=== PATIENT | male | born 1960 | race Caucasian/White ===

== ENCOUNTER 2017-01-31 11:17 | Inpatient (IN) | payer OTHER ==
[~2017-01-31] VITALS: Ht 182.9 cm; Wt 59.3 kg
[2017-01-31 13:29] VITALS: BP 164/92
[2017-01-31 14:33] VITALS: BP 146/93
[2017-01-31] MEDS ORDERED: DIAZEPAM 5 MG/ML, 2ML IV PRN (16:00)
[2017-01-31] MEDS ORDERED: KETOROLAC 30 MG/1 ML IVPush PRN (16:00)
[2017-01-31] MEDS ORDERED: METHOCARBAMOL 750 MG in DEXTROSE 5% 100 ML IV SCH (16:00)
[2017-01-31] MEDS ORDERED: ZOLP-413 PO (16:04)
[2017-01-31] MEDS ORDERED: FLUT1BLS IH (16:04)
[2017-01-31] MEDS ORDERED: IBUP800T PO (16:04)
[2017-01-31] MEDS ORDERED: CYCL-259 PO (16:04)
[2017-01-31] MEDS ORDERED: ACET-709 PO/NG (16:04)
[2017-01-31] MEDS ORDERED: ALBU5SOL5 INH (16:04)
[2017-01-31] MEDS ORDERED: BISACODYL 10 MG SUPP PR PRN (16:30)
[2017-01-31] MEDS ORDERED: ENALAPRILAT 1.25 MG/ML, 2ML IVPush PRN (16:30)
[2017-01-31] MEDS ORDERED: PROMETHAZINE 25 MG/ML, 1ML IM PRN (16:30)
[2017-01-31] MEDS ORDERED: ONDANSETRON 2MG/ML, 2ML IVPush PRN (16:30)
[2017-01-31] MEDS ORDERED: ZOLPIDEM 5MG TABLET PO PRN (16:30)
[2017-01-31] MEDS ORDERED: hydrALAzine 20 MG/ML, 1ML IVPush PRN (16:30)
[2017-01-31] MEDS ORDERED: ACETAMINOPHEN 325 MG TABLET PO PRN (16:30)
[2017-01-31] MEDS ORDERED: METOCLOPRAMIDE 5 MG/ML, 2ML IVPush PRN (16:30)
[2017-01-31] MEDS ORDERED: PLEASE ENTER ALLERGIES MC SCH ×2 (16:30)
[2017-01-31] MEDS ORDERED: DOCUSATE 100 MG CAPSULE PO PRN (16:30)
[2017-01-31] MEDS: DEXAMETHASONE 4 MG/ML, 1ML IVPush SCH ×2 (17:04→21:12)
[2017-01-31] MEDS: ENOXAPARIN 40 MG/0.4 ML SQ SCH (17:18)
[2017-01-31] MEDS ORDERED: DILTIAZEM 5 MG/ML, 5ML ONE (18:52)
[2017-01-31] MEDS ORDERED: DILTIAZEM 5 MG/ML, 5ML IVPush ONE (19:00)
[2017-01-31 19:18] VITALS: BP 156/96
[2017-01-31 19:45] VITALS: BP 134/97
[2017-01-31] MEDS ORDERED: DILTIAZEM 120 MG CAP.ER.12H PO SCH (21:00)
[2017-01-31] MEDS: METHOCARBAMOL 750 MG in DEXTROSE 5% 100 ML IV SCH (21:12)
[2017-01-31] MEDS: DRONABINOL 5 MG CAPSULE PO SCH (21:12)
[2017-01-31] MEDS: SODIUM CHLORIDE FLUSH 10ML SYR IVF SCH (21:12)
[2017-02-01 02:02] VITALS: BP 126/82
[2017-02-01] MEDS: DEXAMETHASONE 4 MG/ML, 1ML IVPush SCH ×4 (04:12→21:01)
[2017-02-01] MEDS: OXYcodone IR 5MG TABLET PO PRN ×3 (04:12→21:01)
[2017-02-01 05:31] LABS: HEMATOCRIT 44.6 % (39.2-51.8); WHITE BLOOD COUNT 13.1 x10^3/uL (3.4-10)
[2017-02-01 05:44] LABS: ASPARTATE AMINO TRANSFERASE 49 U/L (15-37); BLOOD UREA NITROGEN 23 mg/dL (7-18)
[2017-02-01] MEDS: METHOCARBAMOL 750 MG in DEXTROSE 5% 100 ML IV SCH ×4 (06:12→21:01)
[2017-02-01] MEDS ORDERED: SODIUM CHLORIDE 0.9% 1,000 ML IV SCH (08:30)
[2017-02-01] MEDS ORDERED: FUROSEMIDE 40 MG/4 ML IV ONE (08:30)
[2017-02-01] MEDS: DRONABINOL 5 MG CAPSULE PO SCH ×2 (09:01→21:02)
[2017-02-01] MEDS: SODIUM CHLORIDE FLUSH 10ML SYR IVF SCH ×2 (09:02→21:01)
[2017-02-01] MEDS: DILTIAZEM 120 MG CAP.ER.12H PO SCH ×2 (09:02→21:02)
[2017-02-01] MEDS: HYDROmorphone 2 MG/ML, 1ML IVPush PRN ×4 (09:03→22:55)
[2017-02-01] MEDS: DIGOXIN 0.125 MG TABLET PO SCH (09:03)
[2017-02-01 09:04] VITALS: BP 148/95
[2017-02-01] MEDS: SENNA/DOCUSATE TABLET PO SCH (09:04)
[2017-02-01] MEDS: ALBUTEROL/IPRATROPIUM 2.5MG/0.5MG, 3 ML NPPB SCH ×3 (11:25→19:36)
[2017-02-01] MEDS ORDERED: ALBUTEROL/IPRATROPIUM 2.5MG/0.5MG, 3 ML ONE (11:25)
[2017-02-01 14:15] VITALS: BP 149/95
[2017-02-01] MEDS: ENOXAPARIN 40 MG/0.4 ML SQ SCH (16:12)
[2017-02-01 19:17] VITALS: BP 156/84
[2017-02-01 19:59] VITALS: BP 157/85
[2017-02-02 01:49] VITALS: BP 159/88
[2017-02-02] MEDS: OXYcodone IR 5MG TABLET PO PRN (01:52)
[2017-02-02] MEDS ORDERED: DILTIAZEM 5 MG/ML, 5ML IVPush ONE (03:30)
[2017-02-02] MEDS ORDERED: DILTIAZEM 125 MG in SODIUM CHLORIDE 0.9% 100 ML IV PRN (03:30)
[2017-02-02] MEDS: DEXAMETHASONE 4 MG/ML, 1ML IVPush SCH ×4 (03:39→20:59)
[2017-02-02] MEDS: HYDROmorphone 2 MG/ML, 1ML IVPush PRN ×2 (04:56→13:57)
[2017-02-02 05:42] LABS: ASPARTATE AMINO TRANSFERASE 31 U/L (15-37); BLOOD UREA NITROGEN 24 mg/dL (7-18)
[2017-02-02] MEDS: METHOCARBAMOL 750 MG in DEXTROSE 5% 100 ML IV SCH ×4 (06:12→21:00)
[2017-02-02] MEDS: ALBUTEROL/IPRATROPIUM 2.5MG/0.5MG, 3 ML NPPB SCH ×4 (07:20→19:23)
[2017-02-02 08:48] VITALS: BP 139/93
[2017-02-02] MEDS ORDERED: HEPARIN 5,000 UNITS/ML, 1ML IV ONE (09:00)
[2017-02-02] MEDS ORDERED: ZOLEDRONIC ACID 4MG/100ML 100 ML IV ONE (09:00)
[2017-02-02] MEDS: SODIUM CHLORIDE FLUSH 10ML SYR IVF SCH ×2 (10:13→21:00)
[2017-02-02] MEDS: DIGOXIN 0.125 MG TABLET PO SCH (10:13)
[2017-02-02] MEDS: SENNA/DOCUSATE TABLET PO SCH (10:13)
[2017-02-02] MEDS: DRONABINOL 5 MG CAPSULE PO SCH ×2 (10:13→20:59)
[2017-02-02] MEDS ORDERED: AMIODARONE 150 MG in DEXTROSE 5% 100 ML IV ONE (10:30)
[2017-02-02] MEDS ORDERED: AMIODARONE 900 MG in DEXTROSE 5% 482 ML IV PRN (10:30)
[2017-02-02] MEDS ORDERED: FILTER 0.22 MICRON IV SCH (11:00)
[2017-02-02] MEDS: HEPARIN 25,000 UNITS/500ML PMX 500 ML IV PRN (11:05)
[2017-02-02 15:00] VITALS: BP 145/76
[2017-02-02] MEDS: HEPARIN 5,000 UNITS/ML, 1ML IV PRN ×2 (17:32→23:56)
[2017-02-02 19:55] VITALS: BP 152/87
[2017-02-02] MEDS: maalox/diphenh/lido/sucralfate 5 ML PO PRN (21:00)
[2017-02-03 02:20] VITALS: BP 155/92
[2017-02-03] MEDS: DEXAMETHASONE 4 MG/ML, 1ML IVPush SCH ×4 (04:23→23:01)
[2017-02-03] MEDS: maalox/diphenh/lido/sucralfate 5 ML PO PRN (04:27)
[2017-02-03 05:29] LABS: HEMATOCRIT 46.9 % (39.2-51.8); HEMOGLOBIN 15.6 g/dL (13.7-18.0); WHITE BLOOD COUNT 15.2 x10^3/uL (3.4-10)
[2017-02-03 05:42] LABS: BLOOD UREA NITROGEN 22 mg/dL (7-18)
[2017-02-03 05:46] LABS: ASPARTATE AMINO TRANSFERASE 26 U/L (15-37)
[2017-02-03] MEDS: METHOCARBAMOL 750 MG in DEXTROSE 5% 100 ML IV SCH ×4 (06:23→21:44)
[2017-02-03 07:35] VITALS: BP 151/91
[2017-02-03] MEDS: DIGOXIN 0.125 MG TABLET PO SCH (08:22)
[2017-02-03] MEDS: DRONABINOL 5 MG CAPSULE PO SCH ×2 (08:22→23:01)
[2017-02-03] MEDS: SODIUM CHLORIDE FLUSH 10ML SYR IVF SCH ×2 (08:23→21:44)
[2017-02-03] MEDS: SENNA/DOCUSATE TABLET PO SCH (08:23)
[2017-02-03] MEDS: ALBUTEROL/IPRATROPIUM 2.5MG/0.5MG, 3 ML NPPB SCH ×4 (08:35→19:45)
[2017-02-03] MEDS ORDERED: NALOXONE 1 MG/ML, 2ML ONE (10:10)
[2017-02-03] MEDS ORDERED: FLUMAZENIL 0.1 MG/1 ML, 5ML ONE (10:10)
[2017-02-03] MEDS ORDERED: MIDAZOLAM 1 MG/ML, 5ML ONE (10:10)
[2017-02-03] MEDS ORDERED: FENTANYL PF 100 MCG/2ML ONE (10:10)
[2017-02-03] MEDS: FILTER 0.22 MICRON IV SCH (10:16)
[2017-02-03] MEDS: AMIODARONE 200 MG TABLET PO SCH ×2 (11:31→21:45)
[2017-02-03 13:45] VITALS: BP 151/100
[2017-02-03] MEDS ORDERED: HEPARIN 5,000 UNITS/ML, 1ML IV ONE (14:30)
[2017-02-03] MEDS: CHOLECALCIFEROL 400 UNITS TABLET PO SCH ×2 (15:37→21:45)
[2017-02-03 19:16] VITALS: BP 145/87
[2017-02-03] MEDS: HYDROmorphone 2 MG/ML, 1ML IVPush PRN (19:38)
[2017-02-03] MEDS: HEPARIN 5,000 UNITS/ML, 1ML IV PRN (21:45)
[2017-02-04 01:23] VITALS: BP 153/91
[2017-02-04] MEDS: HYDROmorphone 2 MG/ML, 1ML IVPush PRN (03:13)
[2017-02-04] MEDS: HEPARIN 25,000 UNITS/500ML PMX 500 ML IV PRN (04:11)
[2017-02-04] MEDS: DEXAMETHASONE 4 MG/ML, 1ML IVPush SCH ×4 (04:34→22:31)
[2017-02-04 04:47] LABS: HEMATOCRIT 46.6 % (39.2-51.8); HEMOGLOBIN 15.6 g/dL (13.7-18.0); WHITE BLOOD COUNT 14.9 x10^3/uL (3.4-10)
[2017-02-04] MEDS: HEPARIN 5,000 UNITS/ML, 1ML IV PRN (04:48)
[2017-02-04] MEDS: METHOCARBAMOL 750 MG in DEXTROSE 5% 100 ML IV SCH ×4 (05:59→22:38)
[2017-02-04] MEDS: ALBUTEROL/IPRATROPIUM 2.5MG/0.5MG, 3 ML NPPB SCH ×4 (06:36→19:44)
[2017-02-04 07:35] VITALS: BP 167/101
[2017-02-04] MEDS: DRONABINOL 5 MG CAPSULE PO SCH ×2 (08:18→22:26)
[2017-02-04] MEDS: AMIODARONE 200 MG TABLET PO SCH ×2 (08:18→22:28)
[2017-02-04] MEDS: CHOLECALCIFEROL 400 UNITS TABLET PO SCH ×3 (08:18→22:28)
[2017-02-04] MEDS: SENNA/DOCUSATE TABLET PO SCH (08:18)
[2017-02-04] MEDS: DIGOXIN 0.125 MG TABLET PO SCH (08:18)
[2017-02-04] MEDS: FILTER 0.22 MICRON IV SCH (08:19)
[2017-02-04] MEDS: SODIUM CHLORIDE FLUSH 10ML SYR IVF SCH ×2 (08:19→22:28)
[2017-02-04] MEDS: METOPROLOL TARTRATE 25 MG TABLET PO SCH ×2 (10:33→22:28)
[2017-02-04] MEDS ORDERED: BISACODYL 10 MG SUPP PR PRN (12:00)
[2017-02-04] MEDS ORDERED: POLYETHYLENE GLYCOL 17 GM PACKET PO PRN (12:00)
[2017-02-04 12:55] VITALS: BP 144/84
[2017-02-04] MEDS: OXYcodone IR 5MG TABLET PO PRN (14:22)
[2017-02-04 19:54] VITALS: BP 143/95
[2017-02-04] MEDS ORDERED: SODIUM CHLORIDE NASAL SPRAY 45ML BOTTLE NAS PRN (21:30)
[2017-02-04 22:25] VITALS: BP 152/93
[2017-02-05 02:00] VITALS: BP 135/91
[2017-02-05] MEDS: METOPROLOL TARTRATE 25 MG TABLET PO SCH ×3 (05:06→22:01)
[2017-02-05] MEDS: DEXAMETHASONE 4 MG/ML, 1ML IVPush SCH ×4 (05:06→22:02)
[2017-02-05] MEDS: METHOCARBAMOL 750 MG in DEXTROSE 5% 100 ML IV SCH ×4 (05:07→22:00)
[2017-02-05] MEDS: HEPARIN 5,000 UNITS/ML, 1ML IV PRN (05:39)
[2017-02-05] MEDS: HEPARIN 25,000 UNITS/500ML PMX 500 ML IV PRN (05:42)
[2017-02-05 07:01] VITALS: BP 158/97
[2017-02-05] MEDS: ALBUTEROL/IPRATROPIUM 2.5MG/0.5MG, 3 ML NPPB SCH ×4 (07:53→19:32)
[2017-02-05] MEDS: CHOLECALCIFEROL 400 UNITS TABLET PO SCH ×3 (08:15→22:01)
[2017-02-05] MEDS: AMIODARONE 200 MG TABLET PO SCH ×2 (08:15→22:01)
[2017-02-05] MEDS: SENNA/DOCUSATE TABLET PO SCH (08:15)
[2017-02-05] MEDS: DRONABINOL 5 MG CAPSULE PO SCH ×2 (08:16→21:00)
[2017-02-05] MEDS: SODIUM CHLORIDE FLUSH 10ML SYR IVF SCH ×2 (08:24→22:01)
[2017-02-05] MEDS ORDERED: AMIODARONE 150 MG in DEXTROSE 5% 100 ML IV ONE (08:30)
[2017-02-05] MEDS ORDERED: FILTER 0.22 MICRON FOR AMIODARONE IV PRN (08:30)
[2017-02-05] MEDS ORDERED: Enoxaparin 1 mg/kg protocol SQ SCH (08:30)
[2017-02-05] MEDS: FILTER 0.22 MICRON IV SCH (09:18)
[2017-02-05] MEDS: morphine SULFATE 60 MG TABLET.ER PO SCH ×2 (09:37→21:00)
[2017-02-05] MEDS: ENOXAPARIN 60 MG/0.6 ML SQ SCH ×2 (10:32→22:01)
[2017-02-05] MEDS: OXYcodone IR 5MG TABLET PO PRN (10:39)
[2017-02-05] MEDS: NYSTATIN 500,000 UNITS/5 ML UDC PO SCH ×3 (13:58→22:01)
[2017-02-05 14:08] VITALS: BP 161/98
[2017-02-05 17:19] VITALS: BP 133/93
[2017-02-05 20:46] VITALS: BP 149/87
[2017-02-06 01:34] VITALS: BP 145/95
[2017-02-06] MEDS: DEXAMETHASONE 4 MG/ML, 1ML IVPush SCH ×4 (03:11→22:11)
[2017-02-06] MEDS: METOPROLOL TARTRATE 25 MG TABLET PO SCH ×4 (03:12→21:10)
[2017-02-06 05:59] LABS: HEMATOCRIT 49.7 % (39.2-51.8); HEMOGLOBIN 16.7 g/dL (13.7-18.0); WHITE BLOOD COUNT 19.6 x10^3/uL (3.4-10)
[2017-02-06 06:02] LABS: BLOOD UREA NITROGEN 27 mg/dL (7-18)
[2017-02-06] MEDS: ALBUTEROL/IPRATROPIUM 2.5MG/0.5MG, 3 ML NPPB SCH ×4 (07:20→20:45)
[2017-02-06] MEDS: FILTER 0.22 MICRON IV SCH (07:39)
[2017-02-06] MEDS: NYSTATIN 500,000 UNITS/5 ML UDC PO SCH ×5 (08:00→21:00)
[2017-02-06 08:35] VITALS: BP 140/91
[2017-02-06] MEDS: AMIODARONE 200 MG TABLET PO SCH ×2 (08:48→21:12)
[2017-02-06] MEDS: CHOLECALCIFEROL 400 UNITS TABLET PO SCH ×3 (08:48→21:12)
[2017-02-06] MEDS: SENNA/DOCUSATE TABLET PO SCH (08:48)
[2017-02-06] MEDS: ENOXAPARIN 60 MG/0.6 ML SQ SCH ×2 (08:49→21:11)
[2017-02-06] MEDS: POLYETHYLENE GLYCOL 17 GM PACKET PO PRN (08:49)
[2017-02-06] MEDS: METHOCARBAMOL 750 MG in DEXTROSE 5% 100 ML IV SCH ×4 (08:54→22:10)
[2017-02-06] MEDS: DRONABINOL 5 MG CAPSULE PO SCH ×2 (08:58→21:14)
[2017-02-06] MEDS: SODIUM CHLORIDE FLUSH 10ML SYR IVF SCH ×2 (08:58→21:11)
[2017-02-06] MEDS: morphine SULFATE 60 MG TABLET.ER PO SCH ×2 (08:58→21:10)
[2017-02-06 12:27] VITALS: BP 163/102
[2017-02-06 13:18] VITALS: BP 144/88
[2017-02-06 15:18] VITALS: BP 160/90
[2017-02-06] MEDS: OXYcodone IR 5MG TABLET PO PRN ×2 (18:06→22:10)
[2017-02-06 20:09] VITALS: BP 149/90
[2017-02-07] MEDS: METOPROLOL TARTRATE 25 MG TABLET PO SCH ×4 (02:41→20:02)
[2017-02-07] MEDS: OXYcodone IR 5MG TABLET PO PRN ×4 (02:42→14:01)
[2017-02-07 02:57] VITALS: BP 153/94
[2017-02-07] MEDS: DEXAMETHASONE 4 MG/ML, 1ML IVPush SCH ×4 (04:40→20:01)
[2017-02-07 05:10] LABS: HEMATOCRIT 52.2 % (39.2-51.8); HEMOGLOBIN 17.4 g/dL (13.7-18.0); WHITE BLOOD COUNT 22.2 x10^3/uL (3.4-10)
[2017-02-07 05:32] LABS: BLOOD UREA NITROGEN 28 mg/dL (7-18)
[2017-02-07 05:47] LABS: DIFF TOTAL CELLS COUNTED 100 CELL DIFF
[2017-02-07 05:49] LABS: VERIFY COUNTS? YES
[2017-02-07 05:50] LABS: LARGE PLATELETS 1+
[2017-02-07] MEDS: NYSTATIN 500,000 UNITS/5 ML UDC PO SCH ×4 (06:00→20:02)
[2017-02-07] MEDS: METHOCARBAMOL 750 MG in DEXTROSE 5% 100 ML IV SCH ×4 (06:17→21:54)
[2017-02-07 07:28] VITALS: BP 156/106
[2017-02-07] MEDS: morphine SULFATE 60 MG TABLET.ER PO SCH ×2 (08:00→20:01)
[2017-02-07] MEDS: AMIODARONE 200 MG TABLET PO SCH (08:01)
[2017-02-07] MEDS: CHOLECALCIFEROL 400 UNITS TABLET PO SCH ×3 (08:01→20:01)
[2017-02-07] MEDS: SENNA/DOCUSATE TABLET PO SCH (08:01)
[2017-02-07] MEDS: DRONABINOL 5 MG CAPSULE PO SCH ×2 (08:01→20:01)
[2017-02-07] MEDS: ENOXAPARIN 60 MG/0.6 ML SQ SCH ×2 (08:02→20:01)
[2017-02-07] MEDS: POLYETHYLENE GLYCOL 17 GM PACKET PO PRN (08:02)
[2017-02-07] MEDS: FILTER 0.22 MICRON IV SCH (08:02)
[2017-02-07] MEDS: SODIUM CHLORIDE FLUSH 10ML SYR IVF SCH ×2 (08:03→20:02)
[2017-02-07] MEDS: ALBUTEROL/IPRATROPIUM 2.5MG/0.5MG, 3 ML NPPB SCH ×4 (08:20→19:42)
[2017-02-07 13:44] VITALS: BP 156/96
[2017-02-07] MEDS ORDERED: DIAZEPAM 5 MG/ML, 10ML VIAL IVPush PRN (14:00)
[2017-02-07] MEDS ORDERED: VANCOMYCIN PER PHARMACY MC PRN (17:30)
[2017-02-07] MEDS ORDERED: PHARMACOKINETIC MONITORING MC PRN (18:00)
[2017-02-07] MEDS: VANCOMYCIN 1,300 MG in SODIUM CHLORIDE 0.9% 250 ML IV SCH (18:40)
[2017-02-07 19:29] VITALS: BP 150/90
[2017-02-07] MEDS: PIPERACILLIN/TAZO/PMX 3.375GM 50 ML IV SCH (20:36)
[2017-02-08] MEDS: METOPROLOL TARTRATE 25 MG TABLET PO SCH ×4 (01:23→20:27)
[2017-02-08] MEDS: OXYcodone IR 5MG TABLET PO PRN ×4 (01:23→14:47)
[2017-02-08 01:37] VITALS: BP_SYST 110; BP_SYST 147; BP_DIAS 68; BP_DIAS 87
[2017-02-08] MEDS ORDERED: MEPERIDINE/PF 50 MG/ML ONE (03:38)
[2017-02-08] MEDS ORDERED: DEXAMETHASONE 4 MG/ML, 5ML ONE (03:40)
[2017-02-08] MEDS: PIPERACILLIN/TAZO/PMX 3.375GM 50 ML IV SCH ×3 (03:44→20:27)
[2017-02-08] MEDS: DEXAMETHASONE 4 MG/ML, 1ML IVPush SCH ×4 (03:44→20:27)
[2017-02-08 04:34] LABS: HEMATOCRIT 48.1 % (39.2-51.8); HEMOGLOBIN 16.2 g/dL (13.7-18.0); WHITE BLOOD COUNT 19.4 x10^3/uL (3.4-10)
[2017-02-08 04:51] LABS: ASPARTATE AMINO TRANSFERASE 24 U/L (15-37); BLOOD UREA NITROGEN 21 mg/dL (7-18)
[2017-02-08] MEDS: METHOCARBAMOL 750 MG in DEXTROSE 5% 100 ML IV SCH ×4 (05:05→20:28)
[2017-02-08] MEDS: NYSTATIN 500,000 UNITS/5 ML UDC PO SCH ×4 (05:05→20:26)
[2017-02-08] MEDS: VANCOMYCIN 1,300 MG in SODIUM CHLORIDE 0.9% 250 ML IV SCH ×2 (06:11→18:51)
[2017-02-08 08:01] VITALS: BP 162/98
[2017-02-08] MEDS: ALBUTEROL/IPRATROPIUM 2.5MG/0.5MG, 3 ML NPPB SCH ×4 (08:05→20:00)
[2017-02-08] MEDS: AMIODARONE 200 MG TABLET PO SCH (09:43)
[2017-02-08] MEDS: CHOLECALCIFEROL 400 UNITS TABLET PO SCH ×3 (09:44→20:27)
[2017-02-08] MEDS: ENOXAPARIN 60 MG/0.6 ML SQ SCH ×2 (09:44→20:27)
[2017-02-08] MEDS: SENNA/DOCUSATE TABLET PO SCH (09:44)
[2017-02-08] MEDS: SODIUM CHLORIDE FLUSH 10ML SYR IVF SCH ×2 (09:45→20:28)
[2017-02-08] MEDS: DRONABINOL 5 MG CAPSULE PO SCH ×2 (09:48→20:26)
[2017-02-08] MEDS: morphine SULFATE 60 MG TABLET.ER PO SCH ×2 (09:48→20:27)
[2017-02-08] MEDS: POLYETHYLENE GLYCOL 17 GM PACKET PO SCH (12:32)
[2017-02-08 12:43] VITALS: BP 142/87
[2017-02-08 19:19] VITALS: BP 141/92
[2017-02-09 02:31] VITALS: BP 153/89
[2017-02-09] MEDS: METOPROLOL TARTRATE 25 MG TABLET PO SCH ×4 (02:34→20:11)
[2017-02-09] MEDS: DEXAMETHASONE 4 MG/ML, 1ML IVPush SCH ×4 (04:16→20:12)
[2017-02-09] MEDS: PIPERACILLIN/TAZO/PMX 3.375GM 50 ML IV SCH ×3 (04:16→20:12)
[2017-02-09 04:51] LABS: HEMATOCRIT 45.7 % (39.2-51.8); HEMOGLOBIN 15.4 g/dL (13.7-18.0); WHITE BLOOD COUNT 15.9 x10^3/uL (3.4-10)
[2017-02-09 05:05] LABS: BLOOD UREA NITROGEN 17 mg/dL (7-18)
[2017-02-09] MEDS: METHOCARBAMOL 750 MG in DEXTROSE 5% 100 ML IV SCH ×4 (06:00→20:12)
[2017-02-09] MEDS: VANCOMYCIN 1,300 MG in SODIUM CHLORIDE 0.9% 250 ML IV SCH ×2 (06:00→18:43)
[2017-02-09] MEDS: NYSTATIN 500,000 UNITS/5 ML UDC PO SCH ×4 (06:00→20:12)
[2017-02-09] MEDS: ENOXAPARIN 60 MG/0.6 ML SQ SCH ×2 (07:46→20:12)
[2017-02-09] MEDS: SODIUM CHLORIDE FLUSH 10ML SYR IVF SCH ×2 (07:47→20:13)
[2017-02-09] MEDS: AMIODARONE 200 MG TABLET PO SCH (07:47)
[2017-02-09] MEDS: SENNA/DOCUSATE TABLET PO SCH (07:48)
[2017-02-09] MEDS: CHOLECALCIFEROL 400 UNITS TABLET PO SCH ×3 (07:48→20:14)
[2017-02-09] MEDS: POLYETHYLENE GLYCOL 17 GM PACKET PO SCH (07:48)
[2017-02-09] MEDS: DRONABINOL 5 MG CAPSULE PO SCH ×2 (07:48→20:11)
[2017-02-09] MEDS: morphine SULFATE 60 MG TABLET.ER PO SCH ×2 (07:48→20:11)
[2017-02-09 08:37] VITALS: BP 138/82
[2017-02-09] MEDS ORDERED: AMIODARONE 200 MG TABLET PO SCH (09:00)
[2017-02-09] MEDS: ALBUTEROL/IPRATROPIUM 2.5MG/0.5MG, 3 ML NPPB SCH ×3 (09:00→20:58)
[2017-02-09 13:26] VITALS: BP 146/87
[2017-02-09] MEDS ORDERED: GOLYTELY 4,000ML ORAL.SOL PO ONE (15:30)
[2017-02-09] MEDS ORDERED: ACETAMINOPHEN 325 MG TABLET PO PRN (16:30)
[2017-02-09] MEDS ORDERED: PROMETHAZINE 25 MG/ML, 1ML IM PRN (16:30)
[2017-02-09] MEDS ORDERED: ONDANSETRON 2MG/ML, 2ML IVPush PRN (16:30)
[2017-02-09] MEDS ORDERED: VANCOMYCIN PER PHARMACY MC PRN (16:30)
[2017-02-09] MEDS ORDERED: BISACODYL 10 MG SUPP PR PRN (16:30)
[2017-02-09] MEDS ORDERED: ENALAPRILAT 1.25 MG/ML, 2ML IVPush PRN (16:30)
[2017-02-09 20:15] VITALS: BP 144/85
[2017-02-10 02:36] VITALS: BP 150/85
[2017-02-10] MEDS: METOPROLOL TARTRATE 25 MG TABLET PO SCH ×4 (02:40→20:43)
[2017-02-10] MEDS: DEXAMETHASONE 4 MG/ML, 1ML IVPush SCH ×4 (03:50→22:20)
[2017-02-10] MEDS: PIPERACILLIN/TAZO/PMX 3.375GM 50 ML IV SCH ×3 (03:51→20:12)
[2017-02-10 04:30] LABS: HEMATOCRIT 45.4 % (39.2-51.8); HEMOGLOBIN 15.1 g/dL (13.7-18.0); WHITE BLOOD COUNT 14.2 x10^3/uL (3.4-10)
[2017-02-10] MEDS: VANCOMYCIN 1,300 MG in SODIUM CHLORIDE 0.9% 250 ML IV SCH ×2 (05:37→17:32)
[2017-02-10] MEDS: NYSTATIN 500,000 UNITS/5 ML UDC PO SCH ×4 (05:37→20:44)
[2017-02-10] MEDS: METHOCARBAMOL 750 MG in DEXTROSE 5% 100 ML IV SCH ×4 (05:37→20:55)
[2017-02-10] MEDS: ALBUTEROL/IPRATROPIUM 2.5MG/0.5MG, 3 ML NPPB SCH ×3 (07:52→19:35)
[2017-02-10 08:21] VITALS: BP 156/95
[2017-02-10] MEDS: morphine SULFATE 60 MG TABLET.ER PO SCH ×2 (08:26→20:43)
[2017-02-10] MEDS: DRONABINOL 5 MG CAPSULE PO SCH ×5 (08:27→20:43)
[2017-02-10] MEDS: AMIODARONE 200 MG TABLET PO SCH (08:27)
[2017-02-10] MEDS: SENNA/DOCUSATE TABLET PO SCH (08:27)
[2017-02-10] MEDS: ENOXAPARIN 60 MG/0.6 ML SQ SCH ×2 (08:28→20:44)
[2017-02-10] MEDS: CHOLECALCIFEROL 400 UNITS TABLET PO SCH ×3 (08:28→20:43)
[2017-02-10] MEDS: POLYETHYLENE GLYCOL 17 GM PACKET PO SCH (08:28)
[2017-02-10] MEDS: SODIUM CHLORIDE FLUSH 10ML SYR IVF SCH ×2 (08:29→20:12)
[2017-02-10 13:56] VITALS: BP 146/82
[2017-02-10] MEDS: OXYcodone IR 5MG TABLET PO PRN (17:16)
[2017-02-10 19:56] VITALS: BP 132/85
[2017-02-11 02:36] VITALS: BP 153/90
[2017-02-11] MEDS: METOPROLOL TARTRATE 25 MG TABLET PO SCH ×4 (02:38→21:14)
[2017-02-11] MEDS: PIPERACILLIN/TAZO/PMX 3.375GM 50 ML IV SCH ×3 (04:14→21:14)
[2017-02-11] MEDS: DEXAMETHASONE 4 MG/ML, 1ML IVPush SCH ×4 (04:14→21:15)
[2017-02-11] MEDS: VANCOMYCIN 1,300 MG in SODIUM CHLORIDE 0.9% 250 ML IV SCH ×3 (05:00→17:01)
[2017-02-11] MEDS: METHOCARBAMOL 750 MG in DEXTROSE 5% 100 ML IV SCH ×4 (05:11→23:04)
[2017-02-11] MEDS: NYSTATIN 500,000 UNITS/5 ML UDC PO SCH ×4 (06:11→21:15)
[2017-02-11] MEDS: ALBUTEROL/IPRATROPIUM 2.5MG/0.5MG, 3 ML NPPB SCH (07:36)
[2017-02-11] MEDS: DRONABINOL 5 MG CAPSULE PO SCH ×4 (09:00→21:00)
[2017-02-11 09:25] VITALS: BP 158/80
[2017-02-11] MEDS: SENNA/DOCUSATE TABLET PO SCH (09:44)
[2017-02-11] MEDS: POLYETHYLENE GLYCOL 17 GM PACKET PO SCH (09:45)
[2017-02-11] MEDS: SODIUM CHLORIDE FLUSH 10ML SYR IVF SCH ×2 (09:45→21:15)
[2017-02-11] MEDS: ENOXAPARIN 60 MG/0.6 ML SQ SCH ×2 (09:45→21:14)
[2017-02-11] MEDS: AMIODARONE 200 MG TABLET PO SCH (09:45)
[2017-02-11] MEDS: CHOLECALCIFEROL 400 UNITS TABLET PO SCH ×3 (09:45→21:15)
[2017-02-11] MEDS: morphine SULFATE 60 MG TABLET.ER PO SCH ×2 (09:54→21:15)
[2017-02-11] MEDS: OXYcodone IR 5MG TABLET PO PRN (10:04)
[2017-02-11 14:00] VITALS: BP 154/72
[2017-02-11] MEDS ORDERED: ALBUTEROL/IPRATROPIUM 2.5MG/0.5MG, 3 ML NPPB PRN (15:00)
[2017-02-11 16:40] VITALS: BP 155/96
[2017-02-11 20:20] VITALS: BP 132/80
[2017-02-12 02:27] VITALS: BP 132/86
[2017-02-12] MEDS: METOPROLOL TARTRATE 25 MG TABLET PO SCH ×4 (02:30→19:50)
[2017-02-12] MEDS: DRONABINOL 5 MG CAPSULE PO SCH ×4 (02:35→19:56)
[2017-02-12] MEDS: PIPERACILLIN/TAZO/PMX 3.375GM 50 ML IV SCH ×2 (04:00→12:32)
[2017-02-12] MEDS: DEXAMETHASONE 4 MG/ML, 1ML IVPush SCH ×5 (04:00→21:06)
[2017-02-12] MEDS: METHOCARBAMOL 750 MG in DEXTROSE 5% 100 ML IV SCH ×4 (05:24→21:06)
[2017-02-12] MEDS: NYSTATIN 500,000 UNITS/5 ML UDC PO SCH ×4 (05:25→19:50)
[2017-02-12 08:00] VITALS: BP 146/96
[2017-02-12] MEDS: ENOXAPARIN 60 MG/0.6 ML SQ SCH ×2 (09:20→19:50)
[2017-02-12] MEDS: POLYETHYLENE GLYCOL 17 GM PACKET PO SCH (09:20)
[2017-02-12] MEDS: SENNA/DOCUSATE TABLET PO SCH (09:29)
[2017-02-12] MEDS: CHOLECALCIFEROL 400 UNITS TABLET PO SCH ×3 (09:30→19:50)
[2017-02-12] MEDS: AMIODARONE 200 MG TABLET PO SCH (09:30)
[2017-02-12] MEDS: morphine SULFATE 60 MG TABLET.ER PO SCH ×2 (09:32→21:06)
[2017-02-12] MEDS: SODIUM CHLORIDE FLUSH 10ML SYR IVF SCH ×2 (09:32→19:50)
[2017-02-12] MEDS: VANCOMYCIN 1,300 MG in SODIUM CHLORIDE 0.9% 250 ML IV SCH (15:09)
[2017-02-12 15:15] VITALS: BP 160/94
[2017-02-12 19:42] VITALS: BP 142/92
[2017-02-12] MEDS: CEFAZOLIN PMX 2GM/50ML 50 ML IVPB SCH (19:49)
[2017-02-13 02:22] VITALS: BP 144/85
[2017-02-13] MEDS: METOPROLOL TARTRATE 25 MG TABLET PO SCH ×4 (02:26→19:59)
[2017-02-13] MEDS: DEXAMETHASONE 4 MG/ML, 1ML IVPush SCH ×4 (03:42→21:28)
[2017-02-13] MEDS: CEFAZOLIN PMX 2GM/50ML 50 ML IVPB SCH ×3 (03:42→19:59)
[2017-02-13 04:47] LABS: HEMATOCRIT 47.4 % (39.2-51.8); HEMOGLOBIN 15.8 g/dL (13.7-18.0); WHITE BLOOD COUNT 12.8 x10^3/uL (3.4-10)
[2017-02-13] MEDS: NYSTATIN 500,000 UNITS/5 ML UDC PO SCH ×4 (05:13→21:26)
[2017-02-13] MEDS: METHOCARBAMOL 750 MG in DEXTROSE 5% 100 ML IV SCH ×4 (05:13→21:26)
[2017-02-13 07:39] VITALS: BP 148/97
[2017-02-13] MEDS: DRONABINOL 5 MG CAPSULE PO SCH ×3 (09:00→21:00)
[2017-02-13] MEDS: morphine SULFATE 60 MG TABLET.ER PO SCH ×2 (09:23→21:27)
[2017-02-13] MEDS: CHOLECALCIFEROL 400 UNITS TABLET PO SCH ×3 (09:23→21:26)
[2017-02-13] MEDS: POLYETHYLENE GLYCOL 17 GM PACKET PO SCH (09:24)
[2017-02-13] MEDS: AMIODARONE 200 MG TABLET PO SCH (09:24)
[2017-02-13] MEDS: SENNA/DOCUSATE TABLET PO SCH (09:24)
[2017-02-13] MEDS: SODIUM CHLORIDE FLUSH 10ML SYR IVF SCH ×2 (09:26→21:27)
[2017-02-13] MEDS: ENOXAPARIN 60 MG/0.6 ML SQ SCH ×3 (09:26→20:03)
[2017-02-13 13:38] VITALS: BP 142/95
[2017-02-13 14:57] VITALS: BP 143/95
[2017-02-13 19:34] VITALS: BP 146/93
[2017-02-14 02:24] VITALS: BP 141/93
[2017-02-14] MEDS: METOPROLOL TARTRATE 25 MG TABLET PO SCH ×4 (02:46→21:00)
[2017-02-14] MEDS: CEFAZOLIN PMX 2GM/50ML 50 ML IVPB SCH ×3 (03:11→21:00)
[2017-02-14] MEDS: DEXAMETHASONE 4 MG/ML, 1ML IVPush SCH ×4 (03:13→21:01)
[2017-02-14] MEDS: NYSTATIN 500,000 UNITS/5 ML UDC PO SCH ×4 (05:20→21:00)
[2017-02-14] MEDS: METHOCARBAMOL 750 MG in DEXTROSE 5% 100 ML IV SCH ×4 (05:20→22:22)
[2017-02-14 06:33] VITALS: BP 132/89
[2017-02-14] MEDS: AMIODARONE 200 MG TABLET PO SCH (10:17)
[2017-02-14] MEDS: CHOLECALCIFEROL 400 UNITS TABLET PO SCH ×3 (10:17→21:00)
[2017-02-14] MEDS: POLYETHYLENE GLYCOL 17 GM PACKET PO SCH (10:18)
[2017-02-14] MEDS: morphine SULFATE 60 MG TABLET.ER PO SCH ×2 (10:18→20:59)
[2017-02-14] MEDS: SODIUM CHLORIDE FLUSH 10ML SYR IVF SCH ×2 (10:18→21:01)
[2017-02-14] MEDS: DRONABINOL 5 MG CAPSULE PO SCH ×3 (10:18→23:09)
[2017-02-14] MEDS: SENNA/DOCUSATE TABLET PO SCH (10:19)
[2017-02-14 13:30] VITALS: BP 131/88
[2017-02-14 19:48] VITALS: BP 130/86
[2017-02-14] MEDS: ENOXAPARIN 60 MG/0.6 ML SQ SCH (20:30)
[2017-02-15 02:27] VITALS: BP 121/82
[2017-02-15] MEDS: METOPROLOL TARTRATE 25 MG TABLET PO SCH ×4 (02:50→19:58)
[2017-02-15] MEDS: CEFAZOLIN PMX 2GM/50ML 50 ML IVPB SCH ×3 (03:10→19:58)
[2017-02-15] MEDS: METHOCARBAMOL 750 MG in DEXTROSE 5% 100 ML IV SCH ×4 (05:00→21:11)
[2017-02-15] MEDS: NYSTATIN 500,000 UNITS/5 ML UDC PO SCH ×4 (05:00→19:58)
[2017-02-15] MEDS: DEXAMETHASONE 4 MG/ML, 1ML IVPush SCH ×4 (05:00→21:11)
[2017-02-15] MEDS: ENOXAPARIN 60 MG/0.6 ML SQ SCH ×3 (07:30→20:02)
[2017-02-15 07:32] VITALS: BP 137/85
[2017-02-15] MEDS: SENNA/DOCUSATE TABLET PO SCH (09:00)
[2017-02-15] MEDS: POLYETHYLENE GLYCOL 17 GM PACKET PO SCH (09:00)
[2017-02-15] MEDS: DRONABINOL 5 MG CAPSULE PO SCH ×3 (09:42→16:14)
[2017-02-15] MEDS: AMIODARONE 200 MG TABLET PO SCH (09:42)
[2017-02-15] MEDS: morphine SULFATE 60 MG TABLET.ER PO SCH ×2 (09:42→19:58)
[2017-02-15] MEDS: CHOLECALCIFEROL 400 UNITS TABLET PO SCH ×3 (09:43→19:58)
[2017-02-15] MEDS: SODIUM CHLORIDE FLUSH 10ML SYR IVF SCH ×2 (09:46→19:57)
[2017-02-15 13:42] VITALS: BP 137/90
[2017-02-15] MEDS ORDERED: BISACODYL 10 MG SUPP PR PRN (20:00)
[2017-02-15] MEDS ORDERED: ACETAMINOPHEN 325 MG TABLET PO PRN (20:00)
[2017-02-15] MEDS ORDERED: ONDANSETRON 2MG/ML, 2ML IVPush PRN (20:00)
[2017-02-15] MEDS ORDERED: ENALAPRILAT 1.25 MG/ML, 2ML IVPush PRN (20:00)
[2017-02-15] MEDS ORDERED: PROMETHAZINE 25 MG/ML, 1ML IM PRN (20:00)
[2017-02-15 20:06] VITALS: BP 125/82
[2017-02-16 01:36] VITALS: BP 146/97
[2017-02-16] MEDS: METOPROLOL TARTRATE 25 MG TABLET PO SCH ×4 (03:03→19:47)
[2017-02-16] MEDS: DEXAMETHASONE 4 MG/ML, 1ML IVPush SCH ×4 (04:13→21:51)
[2017-02-16] MEDS: CEFAZOLIN PMX 2GM/50ML 50 ML IVPB SCH ×3 (04:13→19:46)
[2017-02-16] MEDS: NYSTATIN 500,000 UNITS/5 ML UDC PO SCH ×4 (06:05→21:51)
[2017-02-16] MEDS: METHOCARBAMOL 750 MG in DEXTROSE 5% 100 ML IV SCH ×4 (06:05→21:51)
[2017-02-16 06:43] VITALS: BP 144/88
[2017-02-16] MEDS: DRONABINOL 5 MG CAPSULE PO SCH ×3 (07:50→16:38)
[2017-02-16] MEDS: ENOXAPARIN 60 MG/0.6 ML SQ SCH ×3 (08:30→19:55)
[2017-02-16] MEDS: SENNA/DOCUSATE TABLET PO SCH (09:00)
[2017-02-16] MEDS: POLYETHYLENE GLYCOL 17 GM PACKET PO SCH (09:00)
[2017-02-16] MEDS: AMIODARONE 200 MG TABLET PO SCH (09:36)
[2017-02-16] MEDS: SODIUM CHLORIDE FLUSH 10ML SYR IVF SCH ×2 (09:36→21:51)
[2017-02-16] MEDS: morphine SULFATE 60 MG TABLET.ER PO SCH ×2 (09:37→21:51)
[2017-02-16] MEDS: CHOLECALCIFEROL 400 UNITS TABLET PO SCH ×3 (09:38→21:51)
[2017-02-16 14:04] VITALS: BP 150/93
[2017-02-16 20:14] VITALS: BP 132/87
[2017-02-17 02:24] VITALS: BP 143/90
[2017-02-17] MEDS: DEXAMETHASONE 4 MG/ML, 1ML IVPush SCH ×4 (03:40→22:26)
[2017-02-17] MEDS: CEFAZOLIN PMX 2GM/50ML 50 ML IVPB SCH ×3 (03:40→22:26)
[2017-02-17] MEDS: METOPROLOL TARTRATE 25 MG TABLET PO SCH ×4 (03:40→20:24)
[2017-02-17 05:28] LABS: HEMATOCRIT 45.1 % (39.2-51.8); HEMOGLOBIN 15.2 g/dL (13.7-18.0); WHITE BLOOD COUNT 11.9 x10^3/uL (3.4-10)
[2017-02-17] MEDS: METHOCARBAMOL 750 MG in DEXTROSE 5% 100 ML IV SCH ×5 (05:28→21:09)
[2017-02-17] MEDS: NYSTATIN 500,000 UNITS/5 ML UDC PO SCH ×4 (05:28→20:24)
[2017-02-17 05:57] LABS: BLOOD UREA NITROGEN 16 mg/dL (7-18)
[2017-02-17] MEDS: DRONABINOL 5 MG CAPSULE PO SCH ×3 (07:35→17:12)
[2017-02-17] MEDS: ENOXAPARIN 60 MG/0.6 ML SQ SCH ×2 (07:36→20:24)
[2017-02-17 07:37] VITALS: BP 142/89
[2017-02-17] MEDS: SENNA/DOCUSATE TABLET PO SCH (09:00)
[2017-02-17] MEDS: POLYETHYLENE GLYCOL 17 GM PACKET PO SCH (09:00)
[2017-02-17] MEDS: SODIUM CHLORIDE FLUSH 10ML SYR IVF SCH ×2 (10:12→20:24)
[2017-02-17] MEDS: morphine SULFATE 60 MG TABLET.ER PO SCH ×2 (10:13→20:24)
[2017-02-17] MEDS: AMIODARONE 200 MG TABLET PO SCH (10:14)
[2017-02-17] MEDS: CHOLECALCIFEROL 400 UNITS TABLET PO SCH ×4 (10:15→21:09)
[2017-02-17 14:39] VITALS: BP 132/91
[2017-02-17 19:39] VITALS: BP 135/90
[2017-02-18 02:26] VITALS: BP 146/90
[2017-02-18] MEDS: METOPROLOL TARTRATE 25 MG TABLET PO SCH ×4 (02:31→20:01)
[2017-02-18] MEDS ORDERED: ALBUTEROL/IPRATROPIUM 2.5MG/0.5MG, 3 ML ONE (03:29)
[2017-02-18] MEDS: ALBUTEROL/IPRATROPIUM 2.5MG/0.5MG, 3 ML NPPB PRN ×2 (03:42→07:37)
[2017-02-18] MEDS: DEXAMETHASONE 4 MG/ML, 1ML IVPush SCH ×4 (05:02→22:05)
[2017-02-18] MEDS: METHOCARBAMOL 750 MG in DEXTROSE 5% 100 ML IV SCH ×4 (05:02→20:01)
[2017-02-18] MEDS: NYSTATIN 500,000 UNITS/5 ML UDC PO SCH ×4 (05:02→20:01)
[2017-02-18] MEDS: DRONABINOL 5 MG CAPSULE PO SCH ×4 (07:56→16:51)
[2017-02-18] MEDS: CEFAZOLIN PMX 2GM/50ML 50 ML IVPB SCH ×3 (07:59→22:05)
[2017-02-18 08:00] VITALS: BP 130/88
[2017-02-18] MEDS: SENNA/DOCUSATE TABLET PO SCH (09:00)
[2017-02-18] MEDS: POLYETHYLENE GLYCOL 17 GM PACKET PO SCH (09:00)
[2017-02-18] MEDS: ENOXAPARIN 60 MG/0.6 ML SQ SCH ×2 (09:32→20:05)
[2017-02-18] MEDS: SODIUM CHLORIDE FLUSH 10ML SYR IVF SCH ×2 (09:32→20:00)
[2017-02-18] MEDS: AMIODARONE 200 MG TABLET PO SCH (09:32)
[2017-02-18] MEDS: CHOLECALCIFEROL 400 UNITS TABLET PO SCH ×3 (09:33→20:00)
[2017-02-18] MEDS: morphine SULFATE 60 MG TABLET.ER PO SCH ×2 (09:33→20:00)
[2017-02-18 14:00] VITALS: BP 137/90
[2017-02-18 19:38] VITALS: BP 138/95
[2017-02-19 02:57] VITALS: BP 135/89
[2017-02-19] MEDS: METOPROLOL TARTRATE 25 MG TABLET PO SCH ×3 (02:58→14:56)
[2017-02-19] MEDS: DEXAMETHASONE 4 MG/ML, 1ML IVPush SCH ×3 (04:55→15:42)
[2017-02-19] MEDS: METHOCARBAMOL 750 MG in DEXTROSE 5% 100 ML IV SCH ×3 (04:55→15:41)
[2017-02-19] MEDS: NYSTATIN 500,000 UNITS/5 ML UDC PO SCH ×3 (04:55→14:58)
[2017-02-19] MEDS: CEFAZOLIN PMX 2GM/50ML 50 ML IVPB SCH ×2 (07:43→14:56)
[2017-02-19] MEDS: DRONABINOL 5 MG CAPSULE PO SCH ×3 (07:43→15:42)
[2017-02-19 08:14] VITALS: BP 151/94
[2017-02-19] MEDS: POLYETHYLENE GLYCOL 17 GM PACKET PO SCH (09:03)
[2017-02-19] MEDS: ENOXAPARIN 60 MG/0.6 ML SQ SCH (09:03)
[2017-02-19] MEDS: CHOLECALCIFEROL 400 UNITS TABLET PO SCH (09:04)
[2017-02-19] MEDS: morphine SULFATE 60 MG TABLET.ER PO SCH (09:04)
[2017-02-19] MEDS: AMIODARONE 200 MG TABLET PO SCH (09:04)
[2017-02-19] MEDS: SENNA/DOCUSATE TABLET PO SCH (09:05)
[2017-02-19] MEDS: SODIUM CHLORIDE FLUSH 10ML SYR IVF SCH (09:05)
[2017-02-19] MEDS ORDERED: PROM25AM6 IM ×2 (11:29→16:45)
[2017-02-19] MEDS ORDERED: POLY17PO5 PO (11:29)
[2017-02-19] MEDS ORDERED: MORP60TA PO (11:29)
[2017-02-19] MEDS ORDERED: OXYC5TAB3 PO (11:29)
[2017-02-19] MEDS ORDERED: DRON5CAP15 PO (11:29)
[2017-02-19] MEDS ORDERED: DEXA4TAB PO (11:29)
[2017-02-19] MEDS ORDERED: AMIO200T42 PO (11:29)
[2017-02-19] MEDS ORDERED: CHOL400T2 PO (11:29)
[2017-02-19] MEDS ORDERED: AMOX1TAB64 PO (11:29)
[2017-02-19] MEDS ORDERED: TEMA15CA6 PO (11:29)
[2017-02-19] MEDS ORDERED: NYST1000 PO (11:29)
[2017-02-19] MEDS ORDERED: maalox/diphenh/lido/sucralfate PO (11:29)
[2017-02-19] MEDS ORDERED: ASPI-650 PO (11:39)
[2017-02-19 13:38] VITALS: BP 147/94
[2017-02-19] MEDS: OXYcodone IR 5MG TABLET PO PRN (16:42)
== END 2017-02-19 17:00 | disposition home or self-care (01) | DRG 477 ==
LOC: 5SO 14:25 → 3NW 02-06 15:34
PROC: 07DS3ZX Extraction of Vertebral Bone Marrow, Percutaneous Approach, Diagnostic (ICD-10-PCS; principal; 2017-02-03)
PROC: 0QB03ZX Excision of Lumbar Vertebra, Percutaneous Approach, Diagnostic (ICD-10-PCS; 2017-02-03)
PROC: D0Y67ZZ Contact Radiation of Spinal Cord (ICD-10-PCS; 2017-02-07)
DX: C79.51 Secondary malignant neoplasm of bone (principal); E43 Unspecified severe protein-calorie malnutrition; J15.211 Pneumonia due to Methicillin susceptible Staphylococcus aureus; C34.90 Malignant neoplasm of unspecified part of unspecified bronchus or lung; B37.0 Candidal stomatitis; D68.69 Other thrombophilia; Z68.1 Body mass index [BMI] 19.9 or less, adult; J44.0 Chronic obstructive pulmonary disease with (acute) lower respiratory infection; I48.91 Unspecified atrial fibrillation; E83.52 Hypercalcemia; Z79.01 Long term (current) use of anticoagulants; Z80.8 Family history of malignant neoplasm of other organs or systems; F12.90 Cannabis use, unspecified, uncomplicated; Z87.891 Personal history of nicotine dependence; I48.0 Paroxysmal atrial fibrillation; K59.00 Constipation, unspecified; M48.06 Spinal stenosis, lumbar region; M54.10 Radiculopathy, site unspecified
CPT/HCPCS: 20225; 36415; 71010; 77012; 77280; 77290; 77295; 77300; 77334; 77336; 77387; 77412; 80048; 80053; 80074; 80162; 80202; 81003; 82306; 82330; 82397; 82565; 83735; 83970; 84100; 84443; 85025; 85520; 85610; 87040; 87070; 87077; 87186; 87205; 88307; 88311; 88341; 88342; 93005; 94640; J0690; J1100; J1170; J1644; J1650; J1940; J2250; J2543; J3010; J3360; J3370; J7620; Q0167; G0461; J0282; J0360; J2310; J2800; J3489; J7030; J7050; J7060